=== PATIENT | female | born 1975 | race Caucasian/White ===

== ENCOUNTER 2019-07-20 18:41 | Emergency (ER) | payer OTHER ==
[~2019-07-20] VITALS: Ht 170.2 cm; Wt 102.5 kg
[2019-07-20 19:11] VITALS: BP 159/85; Ht 170.2 cm; Wt 102.5 kg
== END 2019-07-20 20:06 | disposition home or self-care (01) ==
LOC: ED 18:41
DX: B34.9 Viral infection, unspecified (principal); R19.7 Diarrhea, unspecified; Z88.0 Allergy status to penicillin; Z88.1 Allergy status to other antibiotic agents; Z90.49 Acquired absence of other specified parts of digestive tract